=== PATIENT | female | born 1980 ===

== ENCOUNTER 2022-01-30 17:13 | Emergency (ER) | payer MEDICAID ==
[~2022-01-30] VITALS: Ht 170.2 cm; Wt 81.8 kg
[2022-01-30 17:15] VITALS: BP 143/74
== END 2022-01-30 18:33 | disposition left against medical advice (07) ==
LOC: EMS 17:13
DX: Z53.21 Procedure and treatment not carried out due to patient leaving prior to being seen by health care provider (principal)